=== PATIENT | female | born 1990 | race Hispanic/Latino ===

== ENCOUNTER 2016-09-26 19:14 | Emergency (ER) | payer BC ==
[2016-09-26 19:15] VITALS: BMI 35.3
[2016-09-26 19:30] VITALS: BP 115/67; PULSE 86; RESP 18; O2SAT 99
[2016-09-26] MEDS ORDERED: Sodium Chloride 0.9% 1,000 ML IV STA (20:33)
[2016-09-26 20:44] VITALS: TEMP 99
--- NOTE | 2016-09-26 20:53 | ED PDOC ---
HPI: General Adult Time Seen by Provider: 09/26/16 19:59 Chief Complaint (Nursing): Abdominal Pain Chief Complaint (Provider): Abdominal pain History Per: Patient History/Exam Limitations: no limitations Onset/Duration Of Symptoms: Days (x1 week) Current Symptoms Are (Timing): Still Present Additional Complaint(s): Christal Osman is a 25 year old female with previous medical history of cervical disc herniation and chronic neck pain, who presents to the emergency department with epigastric pain associated with vomiting and nausea ongoing for 5 days. Denied any fever, chills, or diarrhea. Of note, patient also complains of dull facial pain associated with mild frontal headache, swelling around her left eye, and runny nose since yesterday morning. Denied any discharge from eyes, fever, chills, or eye pain. Patient stated she had taken Advil for pain relief with little improvements. Past Medical History Reviewed: Historical Data, Nursing Documentation, Vital Signs Vital Signs: Last Vital Signs Temp 99.0 F 09/26/16 20:44 Pulse 86 09/26/16 19:27 Resp 18 09/26/16 19:27 BP 115/67 09/26/16 19:27 Pulse Ox 99 09/26/16 19:27 - Family History Family History: States: Unknown Family Hx - Social History Ex-Smoker (has not smoked in the last 12 months): Yes Alcohol: None Drugs: Denies - Home Medications Home Medications: Ambulatory Orders Medication Instructions Recorded Vit#96/Ferrous Fum/FA 1 tab PO DAILY 11/26/14 [ Tablet] Docusate Sodium/Sennosides A 2 tab PO HS #0 tab 11/29/14 [Senokot S 50 mg-8.6 mg] Ferrous Sulfate 325 mg PO TID #0 tab 11/29/14 Sennosides A and B [Senokot Tab] 17.2 mg PO HS #0 tab 11/29/14 oxyCODONE/Acetaminophen [Percocet 1 tab PO Q6 PRN #0 tab 11/29/14 5/325 mg Tab] - Allergies Allergies/Adverse Reactions: Allergies Allergy/AdvReac Type Severity Reaction Status Date / Time islas Allergy RASH Verified 09/26/16 19:31 ibuprofen [From Motrin] Allergy ANAPHYLAXIS Verified 09/26/16 19:31 Review of Systems ROS Statement: Except As Marked, All Systems Reviewed And Found Negative Constitutional: Negative for: Fever, Chills Eyes: Positive for: Redness (swelling around left eye). Negative for: Pain, Other (eye discharge) ENT: Positive for: Nose Discharge, Other (dull facial pain) Gastrointestinal: Positive for: Nausea, Vomiting, Abdominal Pain (epigastric ). Negative for: Diarrhea Neurological: Positive for: Headache (mild frontal pain) Physical Exam - Reviewed Nursing Documentation Reviewed: Yes Vital Signs Reviewed: Yes - Physical Exam Appears: Positive for: Well, Non-toxic, No Acute Distress Head Exam: Positive for: ATRAUMATIC, NORMAL INSPECTION, NORMOCEPHALIC Skin: Positive for: Normal Color, Warm, DRY Eye Exam: Positive for: Normal appearance, EOMI, PERRL. Negative for: Nystagmus , Periorbital swelling, Periorbital tenderness ENT: Positive for: Normal ENT Inspection, Pharynx Is (within normal limits). Negative for: Sinus Pain/Drainage Neck: Positive for: Normal, Painless ROM, Supple Cardiovascular/Chest: Positive for: Regular Rate, Rhythm Respiratory: Positive for: Normal Breath Sounds. Negative for: Respiratory Distress Gastrointestinal/Abdominal: Positive for: Normal Exam, Bowel Sounds, Soft. Negative for: Tenderness, Mass, Guarding, Rebound Back: Positive for: Normal Inspection. Negative for: L CVA Tenderness, R CVA Tenderness Extremity: Positive for: Normal ROM. Negative for: Tenderness, Pedal Edema, Deformity Neurologic/Psych: Positive for: Alert, biology instructor II-XII, Oriented - ECG O2 Sat by Pulse Oximetry: 99 (RA) Pulse Ox Interpretation: Normal Medical Decision Making Medical Decision Making: Initial Impression: Epigastric pain; Facial pain Differential diagnosis: Gastritis; UTI; ; gallbladder disease Initial Plan: * Labs * Lipase * Urine dipstick * Urine * Pepcid 20mg IVP * NS 1,000 ml IV per 1,000 mls/hr * Zofran Inj 4mg IVP * US gallbladder & common duct * Re-evaluation Scribe Attestation: Documented by Radha Helm, acting as a scribe for Pepe Doyle MD. Provider Scribe Attestation: All medical record entries made by the Scribe were at my direction and personally dictated by me. I have reviewed the chart and agree that the record accurately reflects my personal performance of the history, physical exam, medical decision making, and the department course for this patient. I have also personally directed, reviewed, and agree with the discharge instructions and disposition.
[2016-09-26 21:09] LABS: BASO % 0.3 % (0.0-2.0); EOS # 0.1 K/uL (0.0-0.7); EOS % 1.5 % (0.0-4.0); HEMOGLOBIN 13.1 g/dL (12.0-16.0); LYMPH # 1.2 K/uL (1.0-4.3); LYMPH % 13.1 % (20.0-40.0); MEAN CELL VOLUME 84.9 fl (81.0-99.0); MEAN PLATELET VOLUME 7.6 fl (7.2-11.7); MONO # 0.5 K/uL (0.0-0.8); MONO % 5.1 % (0.0-10.0); NEUT # 7.6 K/uL (1.8-7.0); RBC 4.7 Mil/uL (3.80-5.20); RED CELL DISTRIBUTION WIDTH 14.1 % (11.5-14.5); WHITE BLOOD COUNT 9.6 K/uL (4.8-10.8)
[2016-09-26 21:14] LABS: ALB/GLOB RATIO 1.3 (1.0-2.1); ALBUMIN 4.2 g/dL (3.5-5.0); ALT/SGPT 73 U/L (9-52); AST/SGOT 31 U/L (14-36); BLOOD UREA NITROGEN 8 mg/dl (7-17); GFR AFRICAN-AMERICAN > 60; GFR NON-AFRICAN AMERICAN > 60; LIPASE 35 U/L (23-300)
--- NOTE | 2016-09-26 21:30 | ED PDOC ---
HPI: Abdomen Time Seen by Provider: 09/26/16 19:59 Chief Complaint (Nursing): Abdominal Pain Chief Complaint (Provider): Abdominal pain History Per: Patient Onset/Duration Of Symptoms: Days (1) Additional Complaint(s): Christal Osman is a 25 year old female with previous medical history of gastritis, who presents to the emergency department with a complaint of epigastric discomfort associated with vomiting and nausea since last night. Denied any diarrhea, fever, or chills. PMD: none provided Past Medical History Reviewed: Historical Data, Nursing Documentation, Vital Signs Vital Signs: Last Vital Signs Temp 99.0 F 09/26/16 20:44 Pulse 86 09/26/16 19:27 Resp 18 09/26/16 19:27 BP 115/67 09/26/16 19:27 Pulse Ox 99 09/26/16 22:26 - Medical History PMH: Gastritis - Surgical History Surgical History: (x1) - Family History Family History: States: Unknown Family Hx - Social History Ex-Smoker (has not smoked in the last 12 months): Yes Alcohol: None Drugs: Denies - Home Medications Home Medications: Ambulatory Orders Medication Instructions Recorded Vit#96/Ferrous Fum/FA 1 tab PO DAILY 11/26/14 [ Tablet] Docusate Sodium/Sennosides A 2 tab PO HS #0 tab 11/29/14 [Senokot S 50 mg-8.6 mg] Ferrous Sulfate 325 mg PO TID #0 tab 11/29/14 Sennosides A and B [Senokot Tab] 17.2 mg PO HS #0 tab 11/29/14 oxyCODONE/Acetaminophen [Percocet 1 tab PO Q6 PRN #0 tab 11/29/14 5/325 mg Tab] Famotidine [Pepcid] 20 mg PO BID #30 tab 09/26/16 Nitrofurantoin Macrocrystals 100 mg PO BID #14 cap 09/26/16 [Macrobid] - Allergies Allergies/Adverse Reactions: Allergies Allergy/AdvReac Type Severity Reaction Status Date / Time islas Allergy RASH Verified 09/26/16 19:31 ibuprofen [From Motrin] Allergy ANAPHYLAXIS Verified 09/26/16 19:31 Review of Systems ROS Statement: Except As Marked, All Systems Reviewed And Found Negative Constitutional: Negative for: Fever, Chills Gastrointestinal: Positive for: Nausea, Vomiting, Abdominal Pain (epigastric discomfort). Negative for: Diarrhea Physical Exam - Reviewed Nursing Documentation Reviewed: Yes Vital Signs Reviewed: Yes - Physical Exam Appears: Positive for: Well, Non-toxic, No Acute Distress Head Exam: Positive for: ATRAUMATIC, NORMAL INSPECTION, NORMOCEPHALIC Skin: Positive for: Normal Color, Warm, DRY Cardiovascular/Chest: Positive for: Regular Rate, Rhythm Respiratory: Positive for: Normal Breath Sounds. Negative for: Crackles, Rales , Rhonchi, Wheezing Gastrointestinal/Abdominal: Positive for: Normal Exam, Bowel Sounds, Soft. Negative for: Tenderness, Mass, Guarding, Rebound Back: Positive for: Normal Inspection. Negative for: L CVA Tenderness, R CVA Tenderness Extremity: Positive for: Normal ROM Neurologic/Psych: Positive for: Alert, business operations coordinator II-XII, Oriented - Laboratory Results Result Diagrams: 09/26/16 21:01 09/26/16 21:01 - ECG O2 Sat by Pulse Oximetry: 99 (RA) Pulse Ox Interpretation: Normal - Progress Re-evaluation Time: 22:23 Condition: Re-examined, Improved Medical Decision Making Medical Decision Making: Initial Impression: Abdominal pain Differential diagnosis: Gastritis; UTI; , gallbladder disease Initial Plan: * Urine dipstick * Urine * Labs * Pepcid 20mg IVP * NS 1,000ml IV 1,000mls/hr * Zofran Inj 4mg IVP * Urine C&S * US gallblader and common duct * re-evaluation * * EXAM: US Abdomen Limited, Right Upper Quadrant CLINICAL HISTORY: 25 years old, female; Pain; Abdominal pain; Epigastric; Additional info: Epigastric pain and vomiting TECHNIQUE: Real-time ultrasound of the right upper quadrant with image documentation. COMPARISON: No relevant prior studies available. FINDINGS: Liver: Normal echogenicity. No mass. No intrahepatic bile duct dilatation. Gallbladder: No gallstones. No wall thickening. No pericholecystic fluid. Common bile duct: No dilatation. No stones. Pancreas: Unremarkable as visualized. Right kidney: Normal echogenicity. No hydronephrosis. IMPRESSION: 1. No acute findings. 2. Non-acute findings are described above. Thank you for allowing us to participate in the care of your patient. Dictated and Authenticated by: Perfecto Fisher MD 09/26/2016 10:03 PM Eastern Time ([place] & [place]) Scribe Attestation: Documented by Radha Helm, acting as a scribe for Pepe Doyle MD. Provider Scribe Attestation: All medical record entries made by the Scribe were at my direction and personally dictated by me. I have reviewed the chart and agree that the record accurately reflects my personal performance of the history, physical exam, medical decision making, and the department course for this patient. I have also personally directed, reviewed, and agree with the discharge instructions and disposition. Disposition - Clinical Impression Clinical Impression: UTI (urinary tract infection), Abdominal pain - Patient ED Disposition Is Patient to be Admitted: No Doctor Will See Patient In The: Office Counseled Patient/Family Regarding: Studies Performed, Diagnosis, Need For Followup - Disposition Referrals: [facility] [Outside] Disposition: Routine/Home Disposition Time: 22:24 Condition: GOOD Additional Instructions: Take your medications as instructed. Follow up with your PCP in 2-3 days. Prescriptions: Famotidine [Pepcid] 20 mg PO BID #30 tab Nitrofurantoin Macrocrystals [Macrobid] 100 mg PO BID #14 cap Instructions: Gastritis (ED), Urinary Tract Infection in Women (ED)
--- NOTE | 2016-09-27 11:40 | US ---
HISTORY: epigastric pain and vomiting COMPARISON: None. TECHNIQUE: Sonographic evaluation of the right upper quadrant of the abdomen. FINDINGS: LIVER: Measures 15.2 cm in length. Normal echogenicity of the liver parenchyma. No mass. No intrahepatic bile duct dilatation. GALLBLADDER: Unremarkable. No gallstones. Negative sonographic Cunningham sign. COMMON BILE DUCT: Measures 4 mm. No stones. No dilatation. PANCREAS: Unremarkable as visualized. No mass. No ductal dilatation. RIGHT KIDNEY: Measures 11.1 cm in length. Normal echogenicity. No calculus, mass, or hydronephrosis. AORTA: No aneurysmal dilatation. IVC: Unremarkable. OTHER FINDINGS: None . IMPRESSION: Unremarkable examination. No evidence of cholelithiasis or cholecystitis.
== END 2016-09-26 22:48 | disposition home or self-care (01) ==
LOC: H.ER 19:14
DX: N39.0 Urinary tract infection, site not specified (principal); R10.9 Unspecified abdominal pain; Z87.891 Personal history of nicotine dependence
CPT/HCPCS: 76705; 80053; 81025; 83690; 85025; 87086; 96361; 96374; 96375; 99284; J2405; J7040

== ENCOUNTER 2017-05-16 11:02 | Emergency (ER) | payer BC ==
[2017-05-16 11:02] VITALS: BMI 35.3
[2017-05-16 11:19] VITALS: RESP 16; O2SAT 99
--- NOTE | 2017-05-16 12:22 | ED PDOC ---
HPI: Chest Pain Time Seen by Provider: 05/16/17 12:21 Chief Complaint (Nursing): Chest Pain Chief Complaint (Provider): chest pain, cough History Per: Patient History/Exam Limitations: no limitations Onset/Duration Of Symptoms: Hrs Current Symptoms Are (Timing): Still Present Quality: "Pain" Associated Symptoms: Nausea Additional Complaint(s): 26 y/o female with history of gastritis, presents to ER for evaluation of nausea and chest pain radiating down her left arm that started as of this morning. She states the nausea and pain have now subsided but she is concerned about congestion and cough which she has had for the past 2 days. She denies any associated fever, vomiting, diarrhea or abdominal pain. No other complaints. Past Medical History Reviewed: Historical Data, Nursing Documentation, Vital Signs Vital Signs: Last Vital Signs Temp 98 F 05/16/17 11:17 Pulse 72 05/16/17 13:18 Resp 16 05/16/17 11:17 BP 114/62 05/16/17 11:17 Pulse Ox 99 05/16/17 13:22 - Medical History PMH: Gastritis - Surgical History Surgical History: (x1) - Family History Family History: States: Unknown Family Hx - Living Arrangements Living Arrangements: With Family - Social History Current smoker - smoking cessation education provided: Yes (2 cigarettes per day ) Alcohol: None Drugs: Denies - Home Medications Home Medications: Ambulatory Orders Medication Instructions Recorded Vit#96/Ferrous Fum/FA 1 tab PO DAILY 11/26/14 [ Tablet] Docusate Sodium/Sennosides A 2 tab PO HS #0 tab 11/29/14 [Senokot S 50 mg-8.6 mg] Ferrous Sulfate 325 mg PO TID #0 tab 11/29/14 Sennosides A and B [Senokot Tab] 17.2 mg PO HS #0 tab 11/29/14 oxyCODONE/Acetaminophen [Percocet 1 tab PO Q6 PRN #0 tab 11/29/14 5/325 mg Tab] Famotidine [Pepcid] 20 mg PO BID #30 tab 09/26/16 Nitrofurantoin Macrocrystals 100 mg PO BID #14 cap 09/26/16 [Macrobid] - Allergies Allergies/Adverse Reactions: Allergies Allergy/AdvReac Type Severity Reaction Status Date / Time islas Allergy RASH Verified 07/17/17 19:31 ibuprofen [From Motrin] Allergy ANAPHYLAXIS Verified 09/26/16 19:31 TAMY Risk Score for UA/NSTEMI - TAMY Risk Score Age > 64: NO 3 or more CAD Risk Factors: NO Known CAD (Stenosis greater than 50%): NO Aspirin use in past 7 days: NO Severe Angina: NO EKG ST changes greater than 0.5mm: NO Positive Cardiac Marker: NO TAMY Score: 0 Risk %: 5% Curb-65 Severity Score - CURB-65 Severity Score Confusion: No Bun >19mg/dl (>7mmol/L): No Respiratory Rate greater than/equal to 30: No Systolic BP <90 or Diastolic BP less than/equal 60mmHg: No Age >64: No Curb-65 Score: 0 Percentage 30-day mortality: 0.6% Wells Criteria for PE - Wells Criteria for Pulmonary Embolism Clinical Signs and Symptoms of DVT: No P.E is #1 Diagnosis, or Equally Likely: No Heart Rate >100: No Immobilization at least 3 days;Surgery previous 4 weeks: No Previous, objectively diagnosed PE or DVT: No Hemoptysis: No Malignancy w/treatment within 6 months, or palliative: No Total Score: 0 Review of Systems ROS Statement: Except As Marked, All Systems Reviewed And Found Negative Constitutional: Negative for: Fever ENT: Positive for: Nose Congestion Cardiovascular: Positive for: Chest Pain. Negative for: Edema, Light Headedness Respiratory: Positive for: Cough. Negative for: Shortness of Breath, SOB with Exertion Gastrointestinal: Positive for: Nausea. Negative for: Vomiting, Abdominal Pain , Diarrhea Physical Exam - Reviewed Nursing Documentation Reviewed: Yes Vital Signs Reviewed: Yes - Physical Exam Appears: Positive for: Non-toxic, No Acute Distress Head Exam: Positive for: ATRAUMATIC, NORMAL INSPECTION, NORMOCEPHALIC Skin: Positive for: Normal Color Eye Exam: Positive for: Normal appearance ENT: Positive for: Normal ENT Inspection. Negative for: Pharyngeal Erythema, Tonsillar Exudate, Tonsillar Swelling Neck: Positive for: Painless ROM, Supple Cardiovascular/Chest: Positive for: Regular Rate, Rhythm. Negative for: Chest Non Tender (reproducible tenderness noted over left anterior chest wall) Respiratory: Positive for: Normal Breath Sounds. Negative for: Wheezing Gastrointestinal/Abdominal: Positive for: Normal Exam, Soft. Negative for: Tenderness Extremity: Positive for: Normal ROM. Negative for: Pedal Edema Neurologic/Psych: Positive for: Alert, Oriented. Negative for: Motor/Sensory Deficits - Laboratory Results Result Diagrams: 05/16/17 12:40 05/16/17 12:40 Urine POC: Negative - ECG Interpretation Of ECG: NSR 72 bpm, no acute finding, reviewed by PA and ED attending O2 Sat by Pulse Oximetry: 99 (RA) Pulse Ox Interpretation: Normal - Other Rad CXR X-Ray: Interpreted by Me, Viewed By Me X-Ray Interpretation: no acute infiltrate Medical Decision Making Medical Decision Making: Impression: 26 y/o female with chest pain and cough Plan: -- ED Upreg -- Labs -- Duoneb 3ml INH -- Tylenol 375mg PO -- Chest X-Ray --EKG --IVF - refused by patient Patient states chest pain has subsided. Patient is aware of diagnostic testing results, all questions answered. Will d/c with rx zithromax, tesslaon perles and ventolin inhaler. Advised tylenol for pain. Patient was instructed to return to ED any time if acutely worse, otherwise to follow-up in 2-3 days with primary doctor. Scribe Attestation: Documented by Ashley Patrick acting as a scribe for ANDREINA Jacobson Provider Attestation: All medical record entries made by the Scribe were at my direction and personally dictated by me. I have reviewed the chart and agree that the record accurately reflects my personal performance of the history, physical exam, medical decision making, and the department course for this patient. I have also personally directed, reviewed, and agree with the discharge instructions and disposition. Disposition - Clinical Impression Clinical Impression: Pleuritic chest pain, Bronchitis - Patient ED Disposition Is Patient to be Admitted: No Counseled Patient/Family Regarding: Studies Performed, Diagnosis, Need For Followup, Rx Given - Disposition Referrals: Ten Tripathi MD [IM] - Disposition: Routine/Home Disposition Time: 14:16 Condition: STABLE Additional Instructions: Take prescription meds as directed. Tylenol for pain as needed. Return any time if acutely worse, otherwise follow up with primary doctor in 1-2 days. Instructions: Pleuritic Chest Pain, Acute Bronchitis, Adult (DC) Forms: [employer] (Portuguese), [facility] ED School/Work Excuse Results - Lab Results Lab Results: 05/16/17 05/16/17 12:40 12:40 WBC 9.5 RBC 4.69 Hgb 13.5 Hct 40.7 MCV 86.8 MCH 28.8 MCHC 33.3 RDW 13.8 Plt Count 268 MPV 7.7 Neut % (Auto) 78.3 H Lymph % (Auto) 12.6 L [place] % (Auto) 6.5 Eos % (Auto) 1.9 Baso % (Auto) 0.7 Neut # (Auto) 7.5 H Lymph # (Auto) 1.2 [place] # (Auto) 0.6 Eos # (Auto) 0.2 Baso # (Auto) 0.1 Sodium 139 Potassium 4.2 Chloride 101 Carbon Dioxide 24 Anion Gap 18 BUN 12 Creatinine 0.6 L Est GFR ( Amer) > 60 Est GFR (Non-Af Amer) > 60 Random Glucose 82 Calcium 9.5 Total Bilirubin 0.5 AST 48 H ALT 65 H Alkaline Phosphatase 96 Troponin I < 0.0120 Total Protein 7.6 Albumin 4.2 Globulin 3.4 Albumin/Globulin Ratio 1.2
[2017-05-16] MEDS ORDERED: Sodium Chloride 0.9% 1,000 ML IV STA (12:37)
[2017-05-16] MEDS ORDERED: Albuterol-Ipratrop 3 mg / 0.5 (3 ml) UD INH STA (12:37)
[2017-05-16] MEDS ORDERED: Albuterol-Ipratrop 3 mg / 0.5 (3 ml) UD ONE (12:57)
[2017-05-16 13:03] LABS: BASO # 0.1 K/uL (0.0-0.2); BASO % 0.7 % (0.0-2.0); EOS # 0.2 K/uL (0.0-0.7); EOS % 1.9 % (0.0-4.0); HEMOGLOBIN 13.5 g/dL (12.0-16.0); LYMPH # 1.2 K/uL (1.0-4.3); LYMPH % 12.6 % (20.0-40.0); MEAN CELL VOLUME 86.8 fl (81.0-99.0); MEAN CORPUSCULAR HEMOGLOBIN 28.8 pg (27.0-31.0); MEAN CORPUSCULAR HGB CONC 33.3 g/dL (33.0-37.0); MEAN PLATELET VOLUME 7.7 fl (7.2-11.7); MONO # 0.6 K/uL (0.0-0.8); MONO % 6.5 % (0.0-10.0); NEUT # 7.5 K/uL (1.8-7.0); NEUT % 78.3 % (50.0-75.0); RBC 4.69 Mil/uL (3.80-5.20); RED CELL DISTRIBUTION WIDTH 13.8 % (11.5-14.5); WHITE BLOOD COUNT 9.5 K/uL (4.8-10.8)
[2017-05-16 13:13] LABS: ALB/GLOB RATIO 1.2 (1.0-2.1); ALBUMIN 4.2 g/dL (3.5-5.0); ALT/SGPT 65 U/L (9-52); AST/SGOT 48 U/L (14-36); BLOOD UREA NITROGEN 12 mg/dl (7-17); CALCIUM 9.5 mg/dL (8.4-10.2); GFR AFRICAN-AMERICAN > 60; GFR NON-AFRICAN AMERICAN > 60
[2017-05-16 14:32] VITALS: BP 124/79; PULSE 88; TEMP 97.9
--- NOTE | 2017-05-16 16:19 | RAD ---
HISTORY: cough, chest pain COMPARISON: No prior. TECHNIQUE: Chest PA and lateral FINDINGS: LUNGS: No active pulmonary disease. PLEURA: No significant pleural effusion identified. No pneumothorax apparent. CARDIOVASCULAR: Normal. OSSEOUS STRUCTURES: AllNo significant abnormalities. VISUALIZED UPPER ABDOMEN: Normal. OTHER FINDINGS: None. IMPRESSION: No active disease. Concordant results with the preliminary interpretation rendered by the emergency department physician procedure.
== END 2017-05-16 14:32 | disposition home or self-care (01) ==
LOC: H.ER 11:02
DX: R07.1 Chest pain on breathing (principal); J40 Bronchitis, not specified as acute or chronic; Z88.6 Allergy status to analgesic agent